=== PATIENT | female | born 1940 | race Caucasian/White ===

== ENCOUNTER 2018-03-14 07:09 | Day surgery (SDC) | payer MEDICARE, BC ==
[2018-03-14] MEDS ORDERED: Sodium Chloride 0.9% 10 ML Syringe FLUSH PRN (07:15)
[2018-03-14] MEDS ORDERED: Lactated Ringers 1,000 ML IV SCH (07:15)
[2018-03-14] MEDS ORDERED: Midazolam 1 MG/ML 2 ML SDV IV ONE (08:50)
[2018-03-14] MEDS ORDERED: Propofol 200 MG/20 ML SDV IV ONE (08:50)
--- NOTE | 2018-03-14 08:52 | PCM.HPR ---
H & P Addendum review - H & P Addendum Review Date of Original H & P: 02/20/18 Date Reviewed: 03/14/18 Time Reviewed: 08:40 Patient was Examined: No Changes
--- NOTE | 2018-03-14 09:21 | PCM.OPNOTE ---
- General Post-Op/Procedure Note Date of Surgery/Procedure: 03/14/18 Operative Procedure(s): Colonoscopy Findings: Diverticulosis Pre Op Diagnosis: Pos Cologuard Post-Op Diagnosis: Same Anesthesia Technique: MAC Primary Surgeon: Nahid Hackett Anesthesia Provider: Maria Antonia Sandhu Complications: None Condition: Good
--- NOTE | 2018-03-14 12:07 | OR ---
DATE OF OPERATION: 03/14/2018 SURGEON: Nahid Hackett MD PREOPERATIVE DIAGNOSIS: Positive Cologuard test. POSTOPERATIVE DIAGNOSIS: Diverticulosis. PROCEDURE: Colonoscopy. ANESTHESIA: IV sedation. DESCRIPTION OF PROCEDURE: The patient was brought to the procedure room, where she was placed on her left side and IV sedation administered. Digital rectal exam was performed, which was normal. The colonoscope was then inserted and advanced to the level of the cecum with difficulty getting through a tortuous sigmoid colon, requiring pressure on the abdomen. Cecum was reached and confirmed by identifying the appendiceal lumen and ileocecal valve. Prep was good and surfaces were well visualized. Upon withdrawing the scope, the ascending, transverse, and descending colon were normal, other than a few diverticula. The sigmoid colon was quite tortuous with multiple large diverticula present. Rectum was normal and retroflexion was normal. Air was removed, and the scope withdrawn. The patient tolerated the procedure well and returned to Recovery in a stable condition. She does not need any further colon screening because of her age. /[id number] KIHSA/LOKESH CC: KATELYNN KWONG
== END 2018-03-14 10:14 | disposition home or self-care (01) ==
LOC: FB.SDS 07:09
PROVIDERS: ATTEND Surgery
DX: R19.5 Other fecal abnormalities (principal); K57.30 Diverticulosis of large intestine without perforation or abscess without bleeding; I10 Essential (primary) hypertension; G47.33 Obstructive sleep apnea (adult) (pediatric); E78.5 Hyperlipidemia, unspecified; M85.89 Other specified disorders of bone density and structure, multiple sites; K21.9 Gastro-esophageal reflux disease without esophagitis; E03.9 Hypothyroidism, unspecified; N39.0 Urinary tract infection, site not specified; Z87.891 Personal history of nicotine dependence; Z79.82 Long term (current) use of aspirin
CPT/HCPCS: 00811; 45378; J2250; J2704; J7120

== ENCOUNTER 2020-02-01 21:13 | Emergency (ER) | payer MEDICARE, BC ==
[2020-02-01] MEDS ORDERED: Alum Hydroxide/Mag Hydroxide 30 ML, Lidocaine 2% 15 ML PO ONE ×2 (22:00)
[2020-02-01] MEDS ORDERED: Benzonatate 100 MG Cap PO ONE (22:00)
[2020-02-01] MEDS ORDERED: Ketorolac 30 MG/ML SDV IVPUSH ONE (22:01)
[2020-02-01] MEDS ORDERED: Acetaminophen 500 MG Tab PO ONE (22:01)
[2020-02-01] MEDS ORDERED: Ondansetron 4 MG/2 ML SDV IVPUSH ONE (22:02)
--- NOTE | 2020-02-01 22:08 | EDM.PDOC ---
ED HPI GENERAL MEDICAL PROBLEM - General Chief Complaint: Respiratory Problem Stated Complaint: SOB/COUGHING Time Seen by Provider: 02/01/20 21:30 Source of Information: Reports: Patient, Family History Limitations: Reports: No Limitations - History of Present Illness INITIAL COMMENTS - FREE TEXT/NARRATIVE: c/o cough x 1d poor appetite, some N, no V, no f/c/d has had flu vax and Pneumovax not ill, altho slept in a different bed as she was coughing so much at night [place], myalgias, malaise smoked a little in mid 1960s on meds for htn, cholesterol no prior CV or pul problems bifrontal [place], sinus pressure nonproductive, slight rhinorhea was seen in clinic, given alb hfa, however no wheeze noted here, does not sound as if she was wheezing at home Duration: Improving Frontal headache Pain Score (Numeric/FACES): 5 - Related Data Allergies Allergy/AdvReac Type Severity Reaction Status Date / Time No Known Allergies Allergy Verified 02/01/20 21:19 Home Meds: Home Meds Ascorbate Calcium [Vitamin C] 500 mg PO BID 03/13/18 [History] Aspirin [Halfprin] 81 mg PO DAILY 03/13/18 [History] Benazepril [Lotensin] 40 mg PO DAILY 03/13/18 [History] Calcium Carbonate [Calcium] 600 mg PO DAILY 03/13/18 [History] Cholecalciferol (Vitamin D3) [Vitamin D3] 1,000 unit PO DAILY 03/13/18 [History] Glucosam/Chondr/Collagn/Hyalur [Glucosamine & Chondroitin Cap] 1 each PO DAILY 03/13/18 [History] Levothyroxine 75 mcg PO ACBREAKFAST 03/13/18 [History] Omeprazole 20 mg PO DAILY 03/13/18 [History] Potassium 99 mg PO DAILY 03/13/18 [History] Sulfamethoxazole/Trimethoprim [Septra DS] 1 tab PO DAILY PRN 03/13/18 [History] Vitamin E 100 unit PO DAILY 03/13/18 [History] amLODIPine Besylate [Norvasc] 5 mg PO DAILY 03/13/18 [History] atorvaSTATin [Lipitor] 40 mg PO BEDTIME 03/13/18 [History] Benzonatate 200 mg PO TID #21 capsule 02/01/20 [Rx] Metoclopramide [Reglan] 5 mg PO Q6H PRN #12 tab 02/01/20 [Rx] Oseltamivir [Tamiflu] 30 mg PO BID #9 cap 02/01/20 [Rx] Past Medical History HEENT History: Reports: Cataract, Impaired Vision Cardiovascular History: Reports: High Cholesterol, Hypertension Respiratory History: Reports: Sleep Apnea Other Respiratory History: uses CPAP Gastrointestinal History: Reports: GERD Genitourinary History: Reports: UTI, Recurrent [employer]PERATOR History: Reports: , Other (See Below) 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 GI Surgical History: Reports: Appendectomy, Colonoscopy Female Surgical History: Reports: Tubal Ligation Musculoskeletal Surgical History: Reports: Other (See Below) Other Musculoskeletal Surgeries/Procedures:: LEFT HAND LITTLE FINGER SURGERY ON IN PAST. Oncologic Surgical History: Reports: Other (See Below) Other Oncologic Surgeries/Procedures: skin CA removed from R eyebrow Social & Family History - Family History Family Medical History: Noncontributory - Tobacco Use Smoking Status *Q: Never Smoker - Caffeine Use Caffeine Use: Reports: Coffee Other Caffeine Use: 5 CUPS A DAY. - Recreational Drug Use Recreational Drug Use: No ED ROS GENERAL - Review of Systems Review Of Systems: See Below Constitutional: Reports: Malaise, Weakness, Decreased Appetite HEENT: Reports: No Symptoms Respiratory: Reports: Cough. Denies: Shortness of Breath, Wheezing Cardiovascular: Reports: No Symptoms. Denies: Chest Pain Endocrine: Reports: No Symptoms GI/Abdominal: Reports: No Symptoms : Reports: No Symptoms Musculoskeletal: Reports: Muscle Pain Skin: Reports: No Symptoms Neurological: Reports: No Symptoms Psychiatric: Reports: No Symptoms Hematologic/Lymphatic: Reports: No Symptoms Immunologic: Reports: No Symptoms ED EXAM, GENERAL - Physical Exam Exam: See Below Exam Limited By: No Limitations General Appearance: Alert, WD/WN, Mild Distress, Other (frequent hacking nonproductive cough with harsh quality, no true wheeze, ambulates and moves okay , does not appear particularly ill, does appear tired) Nose: Normal Inspection, Normal Mucosa, No Blood Throat/Mouth: Normal Inspection, Normal Lips, Normal Teeth, Normal Gums, Normal Oropharynx, Normal Voice, No Airway Compromise Head: Atraumatic, Normocephalic Neck: Normal Inspection, Supple, Non-Tender, Full Range of Motion. No: Lymphadenopathy (R), Lymphadenopathy (L) Respiratory/Chest: Other (frequent cough, no accessory muscles, CTA with cough, good AE b/l, no rales, no wheeze, no rhonchi) Cardiovascular: Regular Rate, Rhythm, No Edema, No JVD, No Rub, Other (dec'd turgor UEs, no tenting, 2/6 MAYELIN at LSB) GI/Abdominal: Soft, Non-Tender, No Distention Back Exam: Normal Inspection, Full Range of Motion, NT Extremities: Normal Inspection, Normal Range of Motion, Non-Tender, No Pedal Edema Neurological: Alert, Oriented, CN II-XII Intact, Normal Cognition, No Motor/ Sensory Deficits Psychiatric: Normal Affect, Normal Mood Skin Exam: Warm, Dry, Intact, Normal Color, No Rash Lymphatic: No Adenopathy Course - Vital Signs Last Recorded V/S: Last Vital Signs Temp 36.7 C 02/01/20 21:13 Pulse 90 02/01/20 21:13 Resp 20 02/01/20 21:13 BP 110/85 02/01/20 21:13 Pulse Ox 96 02/01/20 21:13 - Orders/Labs/Meds Orders: Active Orders 24 hr Category Date Time Status Sodium Chloride 0.9% [Normal Saline] 1,000 ml Med 02/01/20 22:15 Ordered IV ASDIRECTED Isolation [COMM] Routine Oth 02/01/20 21:35 Ordered Medication Orders Sodium Chloride (Normal Saline) 1,000 mls @ 999 mls/hr IV ASDIRECTED YESSY Labs: Laboratory Tests 02/01/20 02/01/20 02/01/20 Range/Units 21:30 21:30 21:30 WBC 6.3 (4.5-12.0) X10-3/uL RBC 4.18 (3.23-5.20) x10(6)uL Hgb 12.0 (11.5-15.5) g/dL Hct 36.1 (30.0-51.3) % MCV 86.3 (80-96) fL MCH 28.6 (27.7-33.6) pg MCHC 33.1 (32.2-35.4) g/dL RDW 14.1 (11.5-15.5) % Plt Count 253 (125-369) X10(3)uL MPV 7.1 L (7.4-10.4) fL Neut % (Auto) 81.1 (46-82) % Lymph % (Auto) 9.6 L (13-37) % [place] % (Auto) 8.8 (4-12) % Eos % (Auto) 0 L (1.0-5.0) % Baso % (Auto) 0 (0-2) % Neut # (Auto) 5.1 (1.6-8.3) # Lymph # (Auto) 0.6 (0.6-5.0) # [place] # (Auto) 0.6 (0.0-1.3) # Eos # (Auto) 0.0 (0.0-0.8) # Baso # (Auto) 0.0 (0.0-0.2) # Sodium 138 (135-145) mmol/L Potassium 3.3 L (3.5-5.3) mmol/L Chloride 100 (100-110) mmol/L Carbon Dioxide 26 (21-32) mmol/L BUN 9 (7-18) mg/dL Creatinine 1.0 (0.55-1.02) mg/dL Est Cr Clr Drug Dosing 37.73 mL/min Estimated GFR (MDRD) 53 L (>60) BUN/Creatinine Ratio 9.0 (9-20) Glucose 108 (80-116) mg/dL Calcium 8.5 L (8.6-10.2) mg/dL Total Bilirubin 0.7 (0.1-1.3) mg/dL AST 47 H (5-25) IU/L ALT 41 H (12-36) U/L Alkaline Phosphatase 64 (56-112) IU/L Troponin I 21.4 (4.0-60.3) pg/mL Total Protein 7.9 (6.0-8.0) g/dL Albumin 4.2 (3.2-4.6) g/dL Globulin 3.7 g/dL Albumin/Globulin Ratio 1.1 Meds: Medications Generic Name Dose Route Start Last Admin Trade Name Freq PRN Reason Stop Dose Admin Sodium Chloride 1,000 mls @ 999 mls/hr 02/01/20 22:15 Normal Saline IV ASDIRECTED YESSY Discontinued Medications Generic Name Dose Route Start Last Admin Trade Name Freq PRN Reason Stop Dose Admin Acetaminophen 1,000 mg 02/01/20 22:01 Tylenol Extra Strength PO 02/01/20 22:02 ONETIME ONE Benzonatate 200 mg 02/01/20 22:00 Tessalon Perles PO 02/01/20 22:01 ONETIME ONE Al Hydroxide/Mg Hydroxide 30 0 ml 02/01/20 22:00 ml/ Lidocaine HCl 15 ml PO 02/01/20 22:01 ONETIME ONE Ketorolac Tromethamine 30 mg 02/01/20 22:01 Toradol IVPUSH 02/01/20 22:02 ONETIME ONE Ondansetron HCl 4 mg 02/01/20 22:02 Zofran IVPUSH 02/01/20 22:03 ONETIME ONE - Re-Assessments/Exams Free Text/Narrative Re-Assessment/Exam: 02/01/20 22:48 K 3.3, ALT/AST slight inc for unknown reason, CBC neg flu A positive trop neg no compli of flu on exam, no temp now is likely d/t flu vax Departure - Departure Time of Disposition: 23:10 Disposition: Home, Self-Care 01 Clinical Impression: Influenza A, Hypokalemia, Elevated liver function tests - Discharge Information *PRESCRIPTION DRUG MONITORING PROGRAM REVIEWED*: Not Applicable *COPY OF PRESCRIPTION DRUG MONITORING REPORT IN PATIENT GINO: Not Applicable Prescriptions: Benzonatate 200 mg PO TID #21 capsule Metoclopramide [Reglan] 5 mg PO Q6H PRN #12 tab PRN Reason: Nausea Oseltamivir [Tamiflu] 30 mg PO BID #9 cap Instructions: Influenza, Adult Forms: ED Department Discharge Additional Instructions: For influenza, take oseltamivir 30 mg 1 capsule 2 times a day for 5 days. For cough, take benzonatate 200 mg 1 capsule 3 times a day. For nausea, take metoclopramide 5 mg 1 tab every 6 hours as needed. For wheezing, use albuterol inhaler 2 puffs every 4 hours as needed. For pain and inflammation, take acetaminophen 500 mg 2 tabs and ibuprofen 200 mg 2 tabs 4 times a day for 7 days. See your doctor in one week, earlier if necessary. Return to Emergency Department if you are feeling worse. Call your Physician or Return to Emergency Department if: * Your condition worsens in any way. * You develop fever greater than 100.4. * You have vomiting that does not stop with medications. * You have pain that is not controlled with medications. Sepsis Event Note - Evaluation Sepsis Screening Result: No Definite Risk - Focused Exam Vital Signs: Vital Signs Temp Pulse Resp BP Pulse Ox 02/01/20 21:13 36.7 C 90 20 110/85 96 Date Exam was Performed: 02/01/20 Time Exam was Performed: 22:21 - My Orders Last 24 Hours: My Active Orders 02/01/20 21:35 Isolation [COMM] Routine 02/01/20 22:15 Sodium Chloride 0.9% [Normal Saline] 1,000 ml IV ASDIRECTED - Assessment/Plan Last 24 Hours: My Active Orders 02/01/20 21:35 Isolation [COMM] Routine 02/01/20 22:15 Sodium Chloride 0.9% [Normal Saline] 1,000 ml IV ASDIRECTED
[2020-02-01] MEDS ORDERED: Sodium Chloride 0.9% 1,000 ML IV SCH (22:15)
[2020-02-01] MEDS ORDERED: Oseltamivir 30 MG Cap PO ONE (22:50)
[2020-02-01] MEDS ORDERED: Potassium Chloride 20 MEQ Tab.ER PO ONE (22:51)
== END 2020-02-01 23:35 | disposition home or self-care (01) ==
LOC: FB.ED 21:13
DX: J10.1 Influenza due to other identified influenza virus with other respiratory manifestations (principal); E87.6 Hypokalemia; R79.89 Other specified abnormal findings of blood chemistry; I10 Essential (primary) hypertension; K21.9 Gastro-esophageal reflux disease without esophagitis; Z98.890 Other specified postprocedural states; Z90.49 Acquired absence of other specified parts of digestive tract; Z79.82 Long term (current) use of aspirin; Z98.51 Tubal ligation status; Z79.899 Other long term (current) drug therapy
CPT/HCPCS: 36415; 80053; 84484; 85025; 87804; 87804-59; 96361; 96374; 96375; 99284-25; A9270-GY; J1885; J2405; J7030

== ENCOUNTER 2025-01-03 08:23 | Observation (INO) | payer MEDICARE, BC ==
[2025-01-03] MEDS: Ondansetron 4 MG/2 ML SDV IVPUSH ONE (08:37)
[2025-01-03 09:08] LABS: BASOPHILS PERCENT AUTO 0.6 % (0.2-1.5); EOSINOPHILS ABSOLUTE AUTO 0.1 x10-3/uL (0.0-0.8); EOSINOPHILS PERCENT AUTO 1.6 % (0.6-8.1); HEMATOCRIT 39.9 % (34.2-48.2); HEMOGLOBIN 12.9 g/dL (11.4-15.5); LYMPHOCYTES ABSOLUTE AUTO 1.6 x10-3/uL (1.0-4.4); LYMPHOCYTES PERCENT AUTO 29.9 % (18.4-52.1); MEAN CORPUSCULAR HEMOGLOBIN 26.5 pg (23.9-33.9); MEAN CORPUSCULAR HGB CONC 32.4 g/dL (31.9-34.8); MEAN CORPUSCULAR VOLUME 81.8 fL (76.7-100.5); MEAN PLATELET VOLUME 7.2 fL (7.1-12.4); MONOCYTES ABSOLUTE AUTO 0.5 x10-3/uL (0.3-1.0); MONOCYTES PERCENT AUTO 9.4 % (4.4-15.7); NEUTROPHILS ABSOLUTE AUTO 3.2 x10-3/uL (1.5-6.3); NEUTROPHILS PERCENT AUTO 58.5 % (30.8-76.2); PLATELET COUNT,PLT 310 x10(3)uL (151-488); RED BLOOD CELL COUNT 4.87 x10(6)uL (3.60-5.20); RED CELL DISTRIBUTION WIDTH 16.2 % (12.3-16.5); WHITE BLOOD CELL COUNT,WBC 5.4 x10-3/uL (3.0-10.3)
[2025-01-03 09:11] LABS: BLOOD UREA NITROGEN,BUN 15 mg/dL (7-18); BUN/CREATININE RATIO 18.8 (9-20); CALCIUM 9.2 mg/dL (8.6-10.2); CARBON DIOXIDE,CO2 29 mmol/L (21-32); CHLORIDE,CL 103 mmol/L (100-110); CREATININE 0.8 mg/dL (0.55-1.02); ESTIMATED GFR 73 mL/min (>60); GLUCOSE RANDOM 97 mg/dL (80-116); SODIUM,NA 139 mmol/L (135-145)
[2025-01-03 09:14] LABS: INR 0.92 (1.00-1.24); PROTHROMBIN TIME 9.7 sec (9.0-11.1)
[2025-01-03 09:17] LABS: ALANINE AMINOTRANSFERASE,ALT 24 U/L (12-36); ALBUMIN 4.1 g/dL (3.2-4.6); ALKALINE PHOSPHATASE 129 IU/L (56-112); ASPARTATE AMNIOTRANSFERASE,AST 23 IU/L (5-25); BILIRUBIN TOTAL 0.8 mg/dL (0.1-1.3); PROTEIN TOTAL,TP 8.3 g/dL (6.0-8.0)
[2025-01-03] MEDS: Ketorolac 30 MG/ML SDV IVPUSH ONE (09:27)
[2025-01-03 09:29] LABS: BILIRUBIN,URINE NEGATIVE (NEGATIVE); GLUCOSE,URINE NORMAL (NORMAL); KETONES,URINE NEGATIVE (NEGATIVE); LEUKOCYTE ESTERASE,URINE NEGATIVE (NEGATIVE); NITRITE,URINE NEGATIVE (NEGATIVE); OCCULT BLOOD,URINE NEGATIVE (NEGATIVE); PROTEIN,URINE NEGATIVE (NEGATIVE); UROBILINOGEN,URINE NORMAL (NEGATIVE)
[2025-01-03 09:38] LABS: APPEARANCE,URINE CLEAR (CLEAR); COLOR,URINE YELLOW (YELLOW); SQUAMOUS EPITHELIAL CELLS,UR RARE (NS,R,O)
[2025-01-03] MEDS: Iopamidol 755 Mg/ML 100 ML Bottle IV SCH (09:49)
[2025-01-03] MEDS ORDERED: Acetaminophen 325 MG Tab PO PRN ×2 (11:42→13:06)
[2025-01-03] MEDS ORDERED: Methocarbamol 500 MG Tab PO PRN (13:06)
[2025-01-03] MEDS ORDERED: LORazepam 0.5 MG Tab PO PRN ×2 (13:06→17:14)
[2025-01-03] MEDS: Trospium 20 MG Tab PO SCH (20:16)
[2025-01-03] MEDS: Donepezil 10 MG Tab PO SCH (20:16)
[2025-01-03] MEDS: atorvaSTATin 40 MG Tab PO SCH (20:17)
[2025-01-03] MEDS: Aspirin 81 MG Tab.EC PO SCH (20:17)
[2025-01-03] MEDS: Ondansetron 4 MG/2 ML SDV IVPUSH PRN (22:07)
[2025-01-03] MEDS: Sodium Chloride 0.9% 10 ML Syringe FLUSH PRN (22:12)
[2025-01-04] MEDS: Melatonin 3 MG Tab PO PRN (01:15)
[2025-01-04] MEDS: Levothyroxine 75 MCG Tab PO SCH (06:17)
[2025-01-04 06:41] LABS: BASOPHILS PERCENT AUTO 0.7 % (0.2-1.5); EOSINOPHILS ABSOLUTE AUTO 0.1 x10-3/uL (0.0-0.8); HEMATOCRIT 36.7 % (34.2-48.2); LYMPHOCYTES ABSOLUTE AUTO 1.9 x10-3/uL (1.0-4.4); LYMPHOCYTES PERCENT AUTO 32.5 % (18.4-52.1); MEAN CORPUSCULAR HEMOGLOBIN 26.6 pg (23.9-33.9); MEAN CORPUSCULAR HGB CONC 32.5 g/dL (31.9-34.8); MEAN CORPUSCULAR VOLUME 81.7 fL (76.7-100.5); MONOCYTES ABSOLUTE AUTO 0.6 x10-3/uL (0.3-1.0); MONOCYTES PERCENT AUTO 11.2 % (4.4-15.7); NEUTROPHILS ABSOLUTE AUTO 3.1 x10-3/uL (1.5-6.3); NEUTROPHILS PERCENT AUTO 53.6 % (30.8-76.2); PLATELET COUNT,PLT 277 x10(3)uL (151-488); RED BLOOD CELL COUNT 4.49 x10(6)uL (3.60-5.20); WHITE BLOOD CELL COUNT,WBC 5.8 x10-3/uL (3.0-10.3)
[2025-01-04 07:15] LABS: BLOOD UREA NITROGEN,BUN 15 mg/dL (7-18); BUN/CREATININE RATIO 18.8 (9-20); CARBON DIOXIDE,CO2 29 mmol/L (21-32); CHLORIDE,CL 106 mmol/L (100-110); CREATININE 0.8 mg/dL (0.55-1.02); ESTIMATED GFR 73 mL/min (>60); GLUCOSE RANDOM 87 mg/dL (80-116); POTASSIUM,K 4.4 mmol/L (3.5-5.3); SODIUM,NA 141 mmol/L (135-145)
[2025-01-04] MEDS: amLODIPine 5 MG Tab PO SCH (08:27)
[2025-01-04] MEDS: Sertraline 100 MG Tab PO SCH (08:28)
[2025-01-04] MEDS: LORazepam 0.5 MG Tab PO ONE (09:52)
[2025-01-04 15:17] VITALS: BP 115/67; PULSE 73
== END 2025-01-04 14:55 | disposition home health service (06) ==
LOC: FB.ED 08:23 → FB.MS 11:42 → UNDOADMOB 12:08
PROVIDERS: ADMIT Family Medicine; ATTEND Internal Medicine
DX: I77.74 Dissection of vertebral artery (principal); I77.71 Dissection of carotid artery; R42 Dizziness and giddiness; R41.0 Disorientation, unspecified; R51.9 Headache, unspecified; R20.0 Anesthesia of skin; F41.8 Other specified anxiety disorders; I10 Essential (primary) hypertension; G43.909 Migraine, unspecified, not intractable, without status migrainosus; G47.30 Sleep apnea, unspecified; Z51.5 Encounter for palliative care; Z79.82 Long term (current) use of aspirin; Z79.890 Hormone replacement therapy; Z79.899 Other long term (current) drug therapy
CPT/HCPCS: 36415; 70450; 70496; 70498; 70551; 71045; 80048; 80053; 81001; 84484; 85025; 85610; 93005; 96374; 96375; 99222; 99238; 99285-25; A9270-GY; G0378; J1885; J2405; Q9967

== ENCOUNTER 2025-11-01 14:25 | Emergency (ER) | payer MEDICARE, BC ==
[2025-11-01 15:13] LABS: BASOPHILS ABSOLUTE AUTO 0.0 x10-3/uL (0.0-0.1); BASOPHILS PERCENT AUTO 0.5 % (0.2-1.5); EOSINOPHILS ABSOLUTE AUTO 0.1 x10-3/uL (0.0-0.8); EOSINOPHILS PERCENT AUTO 1.8 % (0.6-8.1); LYMPHOCYTES ABSOLUTE AUTO 1.3 x10-3/uL (1.0-4.4); LYMPHOCYTES PERCENT AUTO 19.2 % (18.4-52.1); MEAN PLATELET VOLUME 7.3 fL (7.1-12.4); MONOCYTES ABSOLUTE AUTO 0.8 x10-3/uL (0.3-1.0); MONOCYTES PERCENT AUTO 11.5 % (4.4-15.7); NEUTROPHILS ABSOLUTE AUTO 4.5 x10-3/uL (1.5-6.3); NEUTROPHILS PERCENT AUTO 67.0 % (30.8-76.2); PLATELET COUNT,PLT 218 x10(3)uL (151-488); RED BLOOD CELL COUNT 4.29 x10(6)uL (3.60-5.20); RED CELL DISTRIBUTION WIDTH 15.6 % (12.3-16.5); WHITE BLOOD CELL COUNT,WBC 6.7 x10-3/uL (3.0-10.3)
[2025-11-01 15:16] LABS: BLOOD UREA NITROGEN,BUN 17 mg/dL (7-18); CARBON DIOXIDE,CO2 28 mmol/L (21-32); CHLORIDE,CL 105 mmol/L (100-110); CREATININE 0.9 mg/dL (0.55-1.02); ESTIMATED GFR 63 mL/min (>60); GLUCOSE RANDOM 99 mg/dL (80-116); POTASSIUM,K 3.9 mmol/L (3.5-5.3); SODIUM,NA 141 mmol/L (135-145)
[2025-11-01 15:22] LABS: A/G RATIO 1.1; ALANINE AMINOTRANSFERASE,ALT 20 U/L (12-36); ASPARTATE AMNIOTRANSFERASE,AST 20 IU/L (5-25); BILIRUBIN TOTAL 0.7 mg/dL (0.1-1.3); PROTEIN TOTAL,TP 6.7 g/dL (6.0-8.0)
[2025-11-01 15:26] LABS: LACTIC ACID 0.6 mmol/L (0.4-2.0)
[2025-11-01] MEDS: Ondansetron 4 MG/2 ML SDV IVPUSH ONE ×2 (16:03→18:36)
[2025-11-01] MEDS: Sodium Chloride 0.9% 10 ML Syringe FLUSH PRN (16:03)
== END 2025-11-01 19:07 | disposition home or self-care (01) ==
LOC: FB.ED 14:25
DX: K52.89 Other specified noninfective gastroenteritis and colitis (principal); K80.20 Calculus of gallbladder without cholecystitis without obstruction; K59.01 Slow transit constipation; E78.00 Pure hypercholesterolemia, unspecified; I10 Essential (primary) hypertension; K21.9 Gastro-esophageal reflux disease without esophagitis; M19.90 Unspecified osteoarthritis, unspecified site; E86.0 Dehydration; Z79.899 Other long term (current) drug therapy; Z79.890 Hormone replacement therapy; Z79.82 Long term (current) use of aspirin; Z90.49 Acquired absence of other specified parts of digestive tract; Z90.89 Acquired absence of other organs; Z87.891 Personal history of nicotine dependence
CPT/HCPCS: 36415; 74176; 80053; 83605; 83690; 83735; 84484; 85025; 86140; 87428; 96361; 96374; 96376; 99284; A9270; J2405; J7030